=== PATIENT | male | born 1995 | race African-American/Black ===

== ENCOUNTER 2016-05-15 11:54 | Emergency (ER) | payer OTHER ==
[2016-05-15] MEDS ORDERED: HYDROmorphone 1 MG INJECTION IV ONE ×2 (12:09→13:43)
[2016-05-15 12:23] VITALS: BMI 16.7
[2016-05-15] MEDS ORDERED: Pharmacy Review for Metformin - IV Contrast Given SCH (13:00)
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
[2016-05-15 14:55] VITALS: BP 143/66; PULSE 96; TEMP 98.2
== END 2016-05-15 14:40 | disposition short-term general hospital (02) ==
LOC: ED 11:54
DX: J93.9 Pneumothorax, unspecified (principal); S06.0X9A Concussion with loss of consciousness of unspecified duration, initial encounter; S22.41XA Multiple fractures of ribs, right side, initial encounter for closed fracture; S27.321A Contusion of lung, unilateral, initial encounter; S00.03XA Contusion of scalp, initial encounter; M25.511 Pain in right shoulder; V49.59XA Passenger injured in collision with other motor vehicles in traffic accident, initial encounter; F17.200 Nicotine dependence, unspecified, uncomplicated
CPT/HCPCS: 70450; 71101; 71260; 72125; 73030; 74177; 96374; 96376; 99291; A9698; J1170; 99285

== ENCOUNTER 2016-05-23 18:15 | Emergency (ER) | payer OTHER ==
[2016-05-23 18:24] VITALS: PULSE 60; BMI 16.9
[2016-05-23 18:38] VITALS: BP 155/94; TEMP 97.8
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
== END 2016-05-23 19:13 | disposition home or self-care (01) ==
LOC: ED 18:15
DX: S22.41XD Multiple fractures of ribs, right side, subsequent encounter for fracture with routine healing (principal); V43.52XD Car driver injured in collision with other type car in traffic accident, subsequent encounter
CPT/HCPCS: 99282; G0237